=== PATIENT | female | born 1955 | race Hispanic/Latino ===

== ENCOUNTER 2021-07-12 10:55 | Observation (INO) | payer MEDICARE ==
[~2021-07-12] VITALS: Ht 157.5 cm; Wt 72.6 kg
[2021-07-12] MEDS ORDERED: 0.9%NACL 1000ML 1,000 ML IV SCH ×2 (11:30→12:30)
[2021-07-12 11:43] LABS: BASOPHILS % (AUTO) 0.5 % (0.0-5.0); EOSINOPHILS % (AUTO) 4.1 % (0.0-8.0); HEMATOCRIT 31.8 % (36-48); LYMPHOCYTES % (AUTO) 13.8 % (21.0-51.0); MEAN CORPUSCULAR HGB CONC 33.6 g/dL (32.0-36.0); MEAN CORPUSCULAR VOLUME 95.2 fL (79-99); MONOCYTES % (AUTO) 8.9 % (3.0-13.0); NEUTROPHILS % (AUTO) 72.1 % (40.0-77.0); PLATELET COUNT (AUTO) 330 K/uL (130-400); RED BLOOD CELL COUNT(AUTO) 3.34 MIL/uL (4.00-5.50); RED CELL DISTRIBUTION WIDTH 12.2 % (11.0-15.5); WHITE BLOOD COUNT (AUTO) 9.8 K/uL (4.8-10.8)
[2021-07-12 11:52] LABS: CREATININE 2.5 mg/dL (0.5-1.5); POTASSIUM 4.9 mmol/L (3.5-5.1)
[2021-07-12 11:57] LABS: ALBUMIN 3.8 g/dL (3.5-5.0); BILIRUBIN,TOTAL 0.3 mg/dL (0.2-1.0); TOTAL PROTEIN, SERUM 7.9 g/dL (6.0-8.3)
[2021-07-12] MEDS ORDERED: LISI10TA24 PO (12:33)
[2021-07-12] MEDS ORDERED: METF-444 PO (12:33)
[2021-07-12] MEDS ORDERED: LETR2.5T7 PO ×2 (12:33)
[2021-07-12] MEDS ORDERED: GLIP5TAB11 PO ×2 (12:33)
[2021-07-12] MEDS ORDERED: ONDANSETRON 4MG INJ IV PRN (15:00)
[2021-07-12] MEDS ORDERED: IPRATROPIUM/ALBUTEROL SULFATE 3 ML SOLUTION IH PRN (15:00)
[2021-07-12] MEDS ORDERED: ACETAMINOPHEN 325 MG TAB PO PRN (15:00)
[2021-07-12 15:06] VITALS: BP 134/66
[2021-07-12 15:59] LABS: APPEARANCE,URINE Clear (CLEAR); BILIRUBIN,URINE Negative (NEGATIVE); COLOR,URINE Yellow (YELLOW); GLUCOSE, URINE (UA) TRACE mg/dL (NEGATIVE); KETONES,URINE Negative (NEGATIVE); LEUKOCYTE ESTERASE ,URINE Negative (NEGATIVE); NITRATE,URINE Negative (NEGATIVE); OCCULT BLOOD,URINE Negative (NEGATIVE); PROTEIN,URINE Trace mg/dL (NEGATIVE); UROBILINOGEN,URINE 0.2 mg/dL (0.2-1.0)
[2021-07-12 16:02] LABS: CREATININE,URINE RANDOM 28 mg/dL (30-135); SODIUM,URINE RANDOM 72 mmol/l (40-220)
[2021-07-12 16:12] LABS: BACTERIA,URINE Moderate /HPF (None Seen); MUCUS,URINE Few LPF (None Seen); SQUAMOUS EPITHELIAL CELL,UR 0-2 /HPF (0-2)
[2021-07-12] MEDS: INSULIN HUMULIN R 100 UNIT/ML 3ML SQ SCH ×2 (16:30→21:43)
[2021-07-12] MEDS: 0.9%NACL 1000ML 1,000 ML IV SCH (17:29)
[2021-07-12 19:04] VITALS: BP 142/80
[2021-07-12 20:00] VITALS: BP 132/74
[2021-07-13] VITALS (8 sets, daily range): BP systolic 109–141; BP diastolic 53–83
[2021-07-13 06:17] LABS: BASOPHILS % (AUTO) 0.5 % (0.0-5.0); EOSINOPHILS % (AUTO) 5.4 % (0.0-8.0); LYMPHOCYTES % (AUTO) 21.8 % (21.0-51.0); MEAN CORPUSCULAR HEMOGLOBIN 31.1 pg (27.0-33.0); MEAN CORPUSCULAR HGB CONC 33.2 g/dL (32.0-36.0); MEAN CORPUSCULAR VOLUME 93.6 fL (79-99); MONOCYTES % (AUTO) 10.7 % (3.0-13.0); NEUTROPHILS % (AUTO) 60.7 % (40.0-77.0); PLATELET COUNT (AUTO) 281 K/uL (130-400); RED BLOOD CELL COUNT(AUTO) 2.99 MIL/uL (4.00-5.50); RED CELL DISTRIBUTION WIDTH 12.1 % (11.0-15.5); WHITE BLOOD COUNT (AUTO) 6.6 K/uL (4.8-10.8)
[2021-07-13 06:30] LABS: ALBUMIN 3.2 g/dL (3.5-5.0); BILIRUBIN,TOTAL 0.4 mg/dL (0.2-1.0); CREATININE 2.2 mg/dL (0.5-1.5); POTASSIUM 4.3 mmol/L (3.5-5.1); TOTAL PROTEIN, SERUM 6.7 g/dL (6.0-8.3)
[2021-07-13 06:39] LABS: MAGNESIUM 1.2 mg/dL (1.80-2.40)
[2021-07-13] MEDS: INSULIN HUMULIN R 100 UNIT/ML 3ML SQ SCH ×4 (07:30→21:00)
[2021-07-13] MEDS: Letrozole 2.5 MG PO SCH (09:00)
[2021-07-13] MEDS: FAMOTIDINE 20MG TAB PO SCH (09:05)
[2021-07-13] MEDS: ENOXAPARIN SODIUM 30 MG/0.3 ML SQ SCH (09:06)
[2021-07-13] MEDS: LEVOFLOXACIN 500 MG TABLET PO SCH (09:06)
[2021-07-13] MEDS: MAGNESIUM 2GM PREMIX 50ML 50 ML IV SCH (09:40)
[2021-07-13] MEDS ORDERED: ACETAMINOPHEN 500 MG TABLET ONE (15:02)
[2021-07-13] MEDS: 0.9%NACL 1000ML 1,000 ML IV SCH (22:45)
[2021-07-14 00:24] VITALS: BP 131/64
[2021-07-14 03:55] VITALS: BP 115/56
[2021-07-14 05:48] LABS: ALBUMIN 3.7 g/dL (3.5-5.0); BILIRUBIN,TOTAL 0.3 mg/dL (0.2-1.0); CREATININE 1.9 mg/dL (0.5-1.5); POTASSIUM 3.9 mmol/L (3.5-5.1); TOTAL PROTEIN, SERUM 7.5 g/dL (6.0-8.3)
[2021-07-14] MEDS: INSULIN HUMULIN R 100 UNIT/ML 3ML SQ SCH ×3 (07:19→16:30)
[2021-07-14 08:00] VITALS: BP 126/56
[2021-07-14] MEDS: Letrozole 2.5 MG PO SCH (09:00)
[2021-07-14] MEDS: 0.9%NACL 1000ML 1,000 ML IV SCH ×2 (09:13→10:52)
[2021-07-14] MEDS: ENOXAPARIN SODIUM 30 MG/0.3 ML SQ SCH (09:14)
[2021-07-14] MEDS: LEVOFLOXACIN 500 MG TABLET PO SCH (09:14)
[2021-07-14] MEDS: FAMOTIDINE 20MG TAB PO SCH (09:15)
[2021-07-14] MEDS: MAGNESIUM 2GM PREMIX 50ML 50 ML IV SCH (09:37)
[2021-07-14] MEDS ORDERED: MAGNESIUM OXIDE 400 MG TABLET PO SCH (11:30)
[2021-07-14 12:00] VITALS: BP 138/66
[2021-07-14] MEDS ORDERED: CEPHALEXIN 500 MG CAPSULE PO ONE (14:30)
[2021-07-14 16:00] VITALS: BP 120/61
[2021-07-14] MEDS ORDERED: CEPH500B PO ×2 (16:58)
[2021-07-14] MEDS ORDERED: AMLO2.5T4 PO ×2 (16:58)
== END 2021-07-14 18:25 | disposition home or self-care (01) ==
LOC: EDH 10:55 → EDHIP 12:28 → 3DH 07-13 20:46
PROVIDERS: ADMIT Internal Medicine; ATTEND Internal Medicine
DX: E83.52 Hypercalcemia (principal); E83.42 Hypomagnesemia; I10 Essential (primary) hypertension; N17.9 Acute kidney failure, unspecified; E11.65 Type 2 diabetes mellitus with hyperglycemia; D64.9 Anemia, unspecified; E78.00 Pure hypercholesterolemia, unspecified; N39.0 Urinary tract infection, site not specified; B96.20 Unspecified Escherichia coli [E. coli] as the cause of diseases classified elsewhere; E78.5 Hyperlipidemia, unspecified; Z85.3 Personal history of malignant neoplasm of breast; Z90.710 Acquired absence of both cervix and uterus; Z98.891 History of uterine scar from previous surgery; Z79.899 Other long term (current) drug therapy; Z98.890 Other specified postprocedural states; Z79.4 Long term (current) use of insulin; Z79.811 Long term (current) use of aromatase inhibitors; Z92.3 Personal history of irradiation
CPT/HCPCS: 36415 ×3; 71045; 76770; 80053 ×3; 81001; 82330; 82340; 82570; 82948 ×9; 83735 ×2; 83970; 84145 ×2; 84300; 85025 ×2; 87077; 87088; 87186; 96361 ×3; 96365; 96366 ×2; 96372 ×2; 99284; G0378 ×53; J1650 ×2; J1815 ×4; J3475 ×3; J7030 ×4

== ENCOUNTER → 2021-07-19 | Outpatient (CLI) | payer OTHER ==
[~2021-07-19] MED LIST: AMLO2.5T4 PO; CEPH500B PO; GLIP5TAB11 PO; LETR2.5T7 PO; LISI10TA24 PO; METF-444 PO
== END | disposition home or self-care (01) ==
LOC: MERGE 07:54 → OIH 07:54
PROVIDERS: ATTEND Internal Medicine Cardiovascular Disease
DX: Z13.6 Encounter for screening for cardiovascular disorders (principal)
CPT/HCPCS: 75571